=== PATIENT | male | born 1965 ===

== ENCOUNTER 2017-11-16 05:49 | Day surgery (SDC) | payer OTHER ==
[~2017-11-16 05:49] MED LIST: AVAPRO150 MG PO; TOPROL XL25 MG PO
[2017-11-16] MEDS ORDERED: PERCOCET 5-3251 EACH PO (08:38)
[2017-11-16] MEDS ORDERED: RECTICARE30 GM TOP (08:38)
== END 2017-11-16 15:30 | disposition home or self-care (01) ==
LOC: CIR.AMB 05:49
DX: K64.3 Fourth degree hemorrhoids (principal)